=== PATIENT | male | born 1995 | race Two or more races ===

== ENCOUNTER 2023-05-03 05:50 | Day surgery (SDC) | payer OTHER ==
[2023-04-25 11:18] LABS: PH,URINE 6.5 (5.0-8.0); URINE APPEARANCE Clear; URINE BILIRRUBIN Negative (NEGATIVE); URINE BLOOD Negative; URINE COLOR Yellow; URINE GLUCOSE Negative (NEGATIVE); URINE LEUKOCYTE Negative; URINE NITRATE Negative; URINE PROTEIN Negative (NEGATIVE); URINE UROBILINOGEN 0.2 E.U./dl
[2023-04-25 11:37] LABS: HEMATOCRIT 47.6 % (39.0-48.0); HEMOGLOBIN 16.3 g/dL (13-16.00); MEAN CELL VOLUME 85.7 fL (80.0-100.00); MEAN CORPUSCULAR HEMOGLOBIN 29.4 pg (27.00-32.0); MEAN CORPUSCULAR HGB CONC 34.4 g/dl (32.0-36.0); PLATELET COUNT 222 K/uL (150-450); RED BLOOD COUNT 5.55 M/uL (4.00-6.00); RED CELL DISTRIBUTION WIDTH 12.4 % (11.5-14.5)
[2023-04-25 11:45] LABS: URINE BACTERIA 3.7 uL (0.0-1933); URINE EPITHELIAL CELLS 1.2 uL (0.0-38.8); URINE RBC 1.2 uL (0.0-20.8)
[2023-04-25 11:49] LABS: ALBUMIN 4.5 gm/dL (3.4-5.0); BILIRUBIN TOTAL 0.42 mg/dL (0.3-1.2); CREATININE SERUM 0.99 mg/dL (0.70-1.30); GFR 92.11; GLOBULINA 3.2 G/DL (2.4-3.5); INR 0.99; PARTIAL THROMBOPLASTIN TIME 31.4 SECONDS (22.0-34.0); POTASSIUM 4.22 mEq/L (3.5-5.1); PROTHROMBIN TIME 10.4 SECONDS (9.0-11.5); TOTAL PROTEIN 7.7 gm/dL (6.4-8.2)
== END 2023-05-03 16:00 | disposition home or self-care (01) ==
LOC: CIR.AMB 05:50
PROVIDERS: ATTEND Otolaryngology Otology & Neurotology
DX: H66.91 Otitis media, unspecified, right ear (principal); H72.91 Unspecified perforation of tympanic membrane, right ear; Z88.1 Allergy status to other antibiotic agents; Z20.822 Contact with and (suspected) exposure to COVID-19

== ENCOUNTER → 2024-11-18 | Outpatient (CLI) | payer OTHER ==
[2024-11-18 08:35] VITALS: BP 108/66; O2SAT 100
[2024-11-18 09:50] VITALS: BP 110/74; O2SAT 100
[2024-11-18 10:05] VITALS: BP 112/68; O2SAT 100
[2024-11-18 10:20] VITALS: BP 121/69; O2SAT 100
== END | disposition home or self-care (01) ==
LOC: TOM 07:40
DX: R19.09 Other intra-abdominal and pelvic swelling, mass and lump (principal)

== ENCOUNTER → 2024-11-26 | Outpatient (CLI) | payer OTHER ==
[~2024-11-26] VITALS: Ht 165.1 cm; Wt 54.4 kg
[2024-11-26 07:30] VITALS: BP 106/70; O2SAT 99
[2024-11-26 08:35] VITALS: BP 122/74; O2SAT 99
[2024-11-26 08:50] VITALS: BP 118/78; O2SAT 99
[2024-11-26 09:05] VITALS: BP 113/73; O2SAT 99
== END | disposition home or self-care (01) ==
LOC: SONOGRAMA 07:06
DX: R59.0 Localized enlarged lymph nodes (principal)